=== PATIENT | female | born 1950 | race Caucasian/White ===

== ENCOUNTER 2017-02-22 06:37 | Day surgery (SDC) ==
[2015-10-01 01:01] VITALS: BMI 29.0
[2017-02-22] MEDS: LIDOCAINE 1% 20 ML MDV ID ONE (08:19)
[2017-02-22] MEDS ORDERED: VERSED ONE (09:00)
[2017-02-22] MEDS ORDERED: DIPRIVAN 20 ML VIAL IVP ONE (09:00)
[2017-02-22 14:30] VITALS: BP 127/66; TEMP 97.6
--- NOTE | 2017-02-22 15:18 | OP ---
INDICATIONS FOR PROCEDURE: 66-year-old female with a history of short segment Sampson's presents for endoscopy surveillance exam. MEDICATIONS: SEE ANESTHESIA NOTES. PROCEDURE: ENDOSCOPY, ESOPHAGEAL BIOPSIES. REPORT: The risks, benefits, alternatives and limitations were discussed in detail with the patient. Informed consent was obtained. After adequate sedation was achieved, the video endoscope was introduced in the posterior pharynx and esophagus under direct vision and easily advanced down to the second portion of the duodenum. I then slowly withdrew. The duodenal mucosa appeared unremarkable as did the duodenal bulb. The antrum and body were relatively unremarkable. The scope was retroflexed to look at the cardia and fundus which revealed a small hiatal hernia. The scope was anteflexed and withdrawn back through the esophagus. There was a 2 cm hiatal hernia. The GE junction was roughly at 34 cm and was irregular with a couple of tongues extending proximal for about 1/2 cm. Four quadrant biopsies and targeted biopsies were obtained for Sampson's evaluation. No other abnormalities were noted throughout the esophagus. The patient tolerated the procedure well with stable vital signs and pulse oximetry throughout. IMPRESSION: 1. Short segment Sampson's 2. Small hiatal hernia RECOMMENDATIONS: 1. Strict reflux precautions. 2. Await esophageal biopsy results. If there is no evidence of dysplasia or atypia, I recommend a surveillance examination again in 3 years. 3. I will see her back in the office as needed. CC: DR. ASTER MARTI
== END 2017-02-22 11:09 | disposition home or self-care (01) ==
LOC: SURG 06:37
PROVIDERS: ATTEND Internal Medicine Gastroenterology
DX: K22.70 Barrett's esophagus without dysplasia (principal); D13.0 Benign neoplasm of esophagus; K44.9 Diaphragmatic hernia without obstruction or gangrene

== ENCOUNTER 2018-08-17 18:58 | Emergency (ER) | payer OTHER ==
[2018-08-17 19:04] VITALS: BP 148/92; TEMP 97.5; BMI 28.0
[2018-08-17] MEDS ORDERED: DECADRON 4 MG/ML SDV IM STA (20:06)
--- NOTE | 2018-08-17 20:09 | ED.PDOC ---
General ED Provider: Dr. ALEJANDRO GIFFORD-ER Chief Complaint: Respiratory Complaint Stated Complaint: my nose is congested and swollen and i cant breathe through my nose Time Seen by Physician: 20:07 Mode of Arrival: Walk-In Information Source: Patient Exam Limitations: No limitations Primary Care Provider: DONA RODARTE Nursing and Triage Documentation Reviewed and Agree: Yes Does patient meet sepsis criteria?: No System Inflammatory Response Syndrome: Not Applicable Sepsis Protocol: For patient's 13 years and over: Temp is 96.8 and below OR 101 and greater Pulse >90 BPM Resp >20/minute Acutely Altered Mental Status Are patient's symptoms suggestive of a new infection, such as: -Pneumonia -Skin, Soft Tissue -Endocarditis -UTI -Bone, Joint Infection -Implantable Device -Acute Abdominal Infection -Wound Infection -Meningitis -Blood Stream Catheter Infection -Unknown EENT Complaint Exam - Nasal Complaint/Exam Onset/Duration: 3 days Symptoms Are: Still present Timing: Constant Initial Severity: Mild Current Severity: Mild Location: Bilateral, Posterior drainage Aggravating: Reports: URI Alleviating: Reports: None Associated Signs and Symptoms: Reports: Nasal congestion, Nasal discharge Foreign Body Present: No Septal Hematoma: No Differential Diagnoses: Sinusitis, Other Review of Systems - Review Of Systems Constitutional: Reports: No symptoms Eyes: Reports: No symptoms Ears, Nose, Mouth, Throat: Reports: Nose discharge Respiratory: Reports: No symptoms Cardiac: Reports: No symptoms GI: Reports: No symptoms : Reports: No symptoms Musculoskeletal: Reports: No symptoms Skin: Reports: No symptoms Neurological: Reports: No symptoms Endocrine: Reports: No symptoms Hematologic/Lymphatic: Reports: No symptoms All Other Systems: Reviewed and Negative Past Medical History - Past Medical History Previously Healthy: Yes Endocrine: Reports: None Cardiovascular: Reports: None Respiratory: Reports: None Hematological: Reports: None Gastrointestinal: Reports: None Genitourinary: Reports: None Neuro/Psych: Reports: None Musculoskeletal: Reports: None Cancer: Reports: None Last Menstrual Period: n/a - Surgical History General Surgical History: Reports: Unknown - Family History Family History: Reports: Unknown - Social History Smoking Status: Never smoker Hx Substance Use: No Alcohol Screening: None Physical Exam - Physical Exam Appearance: Well-appearing, No pain distress, Well-nourished Eyes: KELLY, EOMI, Conjunctiva clear ENT: Rhinorrhea Neck: Supple Respiratory: Airway patent Cardiovascular: RRR, Pulses normal, No rub, No murmur GI/: Soft Musculoskeletal: Normal strength, ROM intact, No edema, No calf tenderness Skin: Warm, Dry, Normal color Neurological: Sensation intact, Motor intact, Reflexes intact, Cranial nerves intact, Alert, Oriented Psychiatric: Affect appropriate, Mood appropriate Critical Care Note - Critical Care Note Total Time (mins): 0 Course - Course Orders, Labs, Meds: Orders Category Date Time Status Dexamethasone 4 mg/ml Inj [Decadron 4 mg/ml Sdv] MEDS 08/17/18 20:06 Stat 4 mg IM ONCE STA Medications Discontinued Medications Generic Name Dose Route Start Last Admin Trade Name Brantq PRN Reason Stop Dose Admin Dexamethasone Sodium Phosphate 4 mg 08/17/18 20:06 Decadron 4 Mg/Ml Sdv IM 08/17/18 20:07 ONCE STA Vital Signs: Temp Pulse Resp BP Pulse Ox 08/17/18 18:58 97.5 F L 80 24 148/92 H 98 Departure - Departure Time of Disposition: 20:09 Disposition: HOME SELF-CARE Discharge Problem: Rhinitis Qualifiers: Rhinitis type: unspecified Qualified Code(s): J31.0 - Chronic rhinitis Instructions: Postnasal Drip (DC) Condition: Good Pt referred to PMD for follow-up: Yes IPMP verified?: No Additional Instructions: astelin nasal spray 2 puffs each nostril bid---flonaSe nasal spray one puff each nostril bid---zpack, medrol dose pack(start tomorrrow)---f/u with pcp Allergies/Adverse Reactions: Allergies Penicillins Adverse Reaction (Verified 08/17/18 19:03) Home Medications: Ambulatory Orders Anastrozole [Arimidex] 1 mg PO DAILY 07/14/15 Aspirin [Aspirin EC] 81 mg PO DAILY 07/14/15 Calcium Carbonate/Vitamin D3 [Calcium 600 + Vit D Tablet] 1 tab PO BID 07/14/15 Polyethylene Glycol 3350 [Glycolax] 1 cap PO BEDTIME 07/14/15 Ropinirole HCl [Requip] 1 mg PO BEDTIME 07/14/15 Trazodone HCl [Desyrel] 50 mg PO QPM 07/14/15 Omeprazole [Prilosec] 20 mg PO QDAC 08/22/15 Ubidecarenone [Coq10] 50 mg PO DAILY 02/22/17 Vit Calc,Iron,Folic [ Vitamins] 1 each PO DAILY 08/17/18 Solifenacin Succinate [Vesicare] 10 mg PO DAILY 08/17/18 Disposition Discussed With: Patient, Family
== END 2018-08-17 20:44 | disposition home or self-care (01) ==
LOC: ED 18:58
DX: J31.0 Chronic rhinitis (principal)
CPT/HCPCS: 96372; 99283